=== PATIENT | female | born 1980 | race Caucasian/White ===

== ENCOUNTER 2019-06-05 18:18 | Inpatient (IN) | payer MEDICARE, SELFPAY ==
[2019-06-05 18:29] VITALS: BP 108/82; PULSE 96; RESP 16; TEMP 36.6; O2SAT 97
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
[2019-06-05 18:50] LABS: Bilirubin Negative (Negative); Blood Negative (Negative); Clarity Clear (Clear); Glucose Negative (Negative); Ketones Negative (Negative); Leukocyte Esterase Negative (Negative); Nitrite Negative (Negative); Specific Gravity >= 1.030 (1.005-1.025); Urobilinogen 0.2 EU/dL (Up TO 0.2)
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
[2019-06-05 18:59] LABS: Bacteria Many HPF (Negative); Casts Negative LPF (Negative); Crystals Negative HPF (Negative); Epithelial Cells Many HPF (Negative); Mucus Negative (Negative); RBC Negative (0-2)
[2019-06-05 19:00] LABS: C & S Indicated? No/Sq. Contamination
[2019-06-05 19:06] LABS: *AMPHETAMINES SCREEN URINE Negative (Negative); *BARBITURATES SCREEN URINE Negative (Negative); *BENZODIAZEPINES SCREEN URINE Negative (Negative); Cannabinoids THC Negative (Negative); Cocaine Screen,Urine Negative (Negative); METHADONE URINE SCREEN Negative (Negative); OPIATES URINE SCREEN Negative (Negative)
[2019-06-05 19:18] LABS: Tricyclic Antidepressants Negative (Negative)
[2019-06-05 19:38] LABS: HCT 40.4 % (36.0-46.0); HGB 13.2 g/dL (12.0-15.5); Mean Corp. HGB Concentration 32.7 g/dL (32.0-36.0); Mean Corpuscular Volume 82.6 fL (80-95); Mean Platelet Volume 8.9 fL (8.0-11.0); Platelet Count 376 x1000/uL (130-400); RBC 4.89 m/cumm (4.00-5.20); RBC Distribution Width 14.3 % (11.7-14.6); White Blood Cell Count 9.31 k/cumm (4.4-10.8)
--- NOTE | 2019-06-05 20:00 | CMSP_ITS ---
- If Service Date Differs Date of service: 06/05/19 Time of Service: 19:59 Care Management Safety Plan Keri is voluntary for inpatient psychiatric stabilization. Keri is a 39 year old female admitted for psychiatric stabilization with a reported history of schizoaffective disorder and PTSD. Per report she hears voices most days. She is supposed to be on medications but has not taken them or seen mental health for some time. She has been medically cleared and will transition to the medical surgical unit. [facility] is actively looking for placement for psychiatric stabilization [facility] facilities [facility], and [facility]. Currently Keri is cooperative and has a CPSO at the bedside. Per nursing utilities and maintenance supervisor she has CPSO coverage over night and through out the day tomorrow. She denies friends or family, and reports being homeless. Please see mental health and provides notes for clinical assessment. CM met with provider, utilities and maintenance supervisor and mental health safety plan has been established to meet Keri's needs while she awaits bed availability and transfer. At time of transfer Keri will need to be escorted via inventory coordinator to be coordinated once accepting facility has been identified. Safety plan has been established with patient, and care team, to adhere to patient goals, identify restrictions based on behavioral status, address nutrition, and determine allowed personal belongings, tools for hygiene and personal care. Determine level of activity including ambulation, level of supervision, visitors, and determine privileges based on behaviors and level of engagement by pt. SAFETY PLAN: 1. Will remain on suicide precautions. In Paper Clothes 2. Will remain in room under direct supervision of one-on-one staff at all times provided by CPSO; TIFFANIE, JACQUES program director. 3. May have paper cups, plates, finger foods as well as a safety utensils with each meal. 4. Follow [facility] Management of the Admitted Behavioral Health Patient policy. 5. Keri may use comfort bath system, or shower with CPSO present 6. No personal belongings 7. Visitors-No visitors at this time 8. Activities: coloring books, crayons, music with wireless headphones and television if available 9. Bathroom privileges escorted to and from by CPSO 10. Phone: No phone at this time 11. Due to VOLUNTARY status, if patient wishes to leave [facility], the [facility] health service worker must be contacted to re-evaluate patient prior to patient exiting the building. Patient is currently voluntarily at [facility] and seeking inpatient admission when a bed becomes available. [facility] Frontline Health Care Analyst will continue seeking placement. Please contact the Eight [employer] ([phone]) and [facility] Health Care Analyst ([phone]) for any needed changes in the Safety Plan. Safety plan has been provided to interdepartmental care team.
[2019-06-05 20:01] LABS: ALT 21 U/L (12-78); AST 12 U/L (15-37); Albumin 3.8 g/dL (3.4-5.0); Alkaline Phosphatase 78 U/L (46-116); BUN 13 mg/dL (7-18); Bilirubin, Total 0.3 mg/dL (0.2-1.0); CREATININE 0.73 mg/dL (0.55-1.02); Calcium 9.3 mg/dL (8.5-10.1); Chloride 106 mmol/L (98-107); Glucose 78 mg/dL (70-100); Potassium 3.8 mmol/L (3.5-5.1); Sodium 144 mmol/L (136-145); Total Protein 7.9 g/dL (6.4-8.2)
[2019-06-05 20:09] LABS: Salicylate < 2.8 mg/dL (2.8-20.0)
[2019-06-05 20:10] LABS: Acetaminophen < 2 ug/mL (10-30)
[2019-06-05 20:15] LABS: ETHANOL BLOOD < 3.0 mg/dL (<3)
[2019-06-05 20:20] LABS: TSH (W/Ref FT4) 2.67 uIU/mL (0.358-3.74)
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
[2019-06-05 22:45] VITALS: BP 133/61; PULSE 84; RESP 16; TEMP 36.6; O2SAT 97
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
[2019-06-06] VITALS: BP 130/66; PULSE 82; RESP 16; TEMP 36.6; O2SAT 97
--- NOTE | 2019-06-06 08:12 | PHARADMIT ---
Admission Pharmacy Clinical Review SUICIDAL IDEATION; SCHIZOAFFECTIVE Code Status Full Code Current Weight Wgt- 117.9 kg Renally Cleared and Narrow Therapeutic Index Meds CrCl~ 83.3 mL/min Meds-OK QTc Value / Action Taken NA BP Control, Fever BP-130/66 Tmax- 36.6C Electrolytes reviewed Na- 144 K+3.8 DVT Prophylaxis none Opiate Usage / Scheduled Bowel Regimen Ordered No Yes Plt/SCr for Heparin / Enoxaparin Plts-376 SCr-0.73 INR for Warfarin na H/H stable, WBC/Bands H&H- 13.2/40.4 WBC-9.31 Antibiotic appropriateness none Cultures and Sensitivities none Surgical ABX d/c within 24 hr NA DM control / Insulin Dosing BG- 78 Heart Failure (Check EF%) (CARLYN's, B-Block, Diuretics) none IV to PO Switch NA Home Meds Reviewed None Home Meds Not Ordered None Known Comments
[2019-06-06 09:50] VITALS: BP 116/71; PULSE 67; RESP 16; TEMP 36.3; O2SAT 96
[2019-06-06] MEDS: Nystatin POWDER 60 GM JAR TP ×2 (10:05→21:40)
--- NOTE | 2019-06-06 13:01 | CMPROGNOTE_ITS ---
Care Management Progress Note CM collected SS#, Address information, phone #, insurance information and clinicals and [facility]. CM also provided demographic information to [facility] Access. Coordination of psychiatric stabilization placement transitioned from [facility] to [facility] due to [place] reporting that Keri's insurance will not cover her stay at and base rate cost would be $15,000. CM spoke with Candi melchor [facility] regarding SAMINA coverage, she reported Keri will be recognized as [place] resident as long as her benefits are active and she will be ineligible for [place] SAMINA until that time. [facility] Leila and Ying RNCM report the lapse could take up to thirty days. CM attempted multiple avenues for next steps prior to connecting with [place] [facility] [place] (P#[phone]) who encouraged seeking placement for Keri at [facility] (P#[phone]) Address: [address] [place] [address]. CM spoke with Admissions who reported bed availability and stated Keri had MCR and SAMINA coverage. ( reports Keri's MCR (Out of the state of [place]) is exhausted). CM faxed referral for review to [facility] F#[phone]. Keri reports being agreeable to transferring to [place] for treatment and transporting via [employer] support.
--- NOTE | 2019-06-06 13:01 | PDOC.CMPRO ---
Care Management Progress Note CM collected SS#, Address information, phone #, insurance information and clinicals [facility]. CM also provided demographic information to [facility] Access. Coordination of psychiatric stabilization placement transitioned from [facility] to [facility] due to [place] reporting that Keri's insurance will not cover her stay at and base rate cost would be $15,000. CM spoke with Candi melchor [facility] regarding SAMINA coverage, she reported Keri will be recognized as [place] resident as long as her benefits are active and she will be ineligible for [place] SAMINA until that time. [facility] Leila and Ying RNCM report the lapse could take up to thirty days. CM attempted multiple avenues for next steps prior to connecting with [place] [facility] [place] (P#[phone]) who encouraged seeking placement for Keri at [facility] (P#[phone]) Address: [address] [place] [address]. CM spoke with Admissions who reported bed availability and stated Keri had MCR and SAMINA coverage. ( reports Keri's MCR (Out of the state of [place]) is exhausted). CM faxed referral for review to [facility] F#[phone]. Keri reports being agreeable to transferring to [place] for treatment and transporting via [employer] support.
--- NOTE | 2019-06-06 13:12 | PDOC.MHCN ---
Date of service: 06/06/19 Time of Service: 13:12 Mental Health Crisis Note Presenting Issue How did you arrive at the ED and why did you come: Keri presented at the ER yesterday due to suicidal ideation. Precipitating Factors Keri reports ongoing suicidal ideation. She states she has heard voices for a long time but that lately the voices have been telling her to harm herself and others. Today, Keri states that the voices are no longer telling her to harm other people but continue to tell her to jump out in front of traffic. Disposition BEHAVIOR: Cooperative. EYE CONTACT: Good. MOOD: Calm. AFFECT: Normal. APPETITE: Good. SLEEP(trouble falling/staying asleep: States she slept about 6 hours last night. Plan Plan is to seek a voluntary psychiatric hospitalization. Signature Clinician's Name/Title: Leila Cerna BA, [facility] Supervisor Soldering
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
--- NOTE | 2019-06-06 16:00 | CMSP_ITS ---
Care Management Safety Plan Keri remains appropriate in interaction and agreeable to placement in [place]. CM met with her throughout the day, Keri remained appropriate and agreeable, even using good humor when greeting this public relations writer. Keri was transferred to a transition bed on Med/Surg to await placement. Safety plan has been established with patient, and care team, to adhere to patient goals, identify restrictions based on behavioral status, address nutrition, and determine allowed personal belongings, tools for hygiene and personal care. Determine level of activity including ambulation, level of supervision, visitors, and determine privileges based on behaviors and level of engagement by pt. SAFETY PLAN: 1. Will remain on suicide precautions. In Paper Clothes 2. Will remain in room under direct supervision of one-on-one staff at all times provided by [employer]; TIFFANIE, JACQUES motor grader rough grade. 3. May have paper cups, plates, finger foods, safety utensils as well as a metal spoon with which to eat meals. [facility] staff with account for spoon when meal is complete. 4. Follow [facility] Management of the Admitted Behavioral Health Patient policy. 5. Keri may use comfort bath system, or shower with [employer] present. 6. No personal belongings 7. Visitors-No visitors at this time 8. Activities: coloring books, crayons, music with wireless headphones and television permitted. 9. Phone: No phone at this time 11. Due to VOLUNTARY status, if patient wishes to leave [facility], the [facility] Crisis wo rker must be contacted to re-evaluate patient prior to patient exiting the building. Patient is currently voluntarily at [facility] and seeking inpatient admission when a bed becomes available. [facility] Frontline Instructional Services Specialist will continue seeking placement. Please contact the Travel Accommodations Rater Warp Bleaching Vat Tender ([phone]) and [facility] Instructional Services Specialist ([phone]) for any needed changes in the Safety Plan. Safety plan has been provided to interdepartmental care team.
[2019-06-06 16:25] VITALS: BP 110/57; PULSE 72; RESP 20; TEMP 36; O2SAT 96
[2019-06-06 20:45] VITALS: BP 104/56; PULSE 67; RESP 19; TEMP 36.5; O2SAT 98
[2019-06-06] MEDS: Melatonin 3 MG TAB 9 MG PO (21:40)
[2019-06-07 07:30] VITALS: BP 123/65; PULSE 66; RESP 16; TEMP 36.5; O2SAT 98
[2019-06-07] MEDS: Nystatin POWDER 60 GM JAR TP ×2 (10:00→20:37)
--- NOTE | 2019-06-07 10:00 | CMPROGNOTE_ITS ---
Care Management Progress Note CM spoke with Candi melchor TIFFANIE who directed this caption writer to Mily Morales due to BR reporting Keri has exhausted her MCR. Mily was unable to see where MCR was exhausted and emailed information to this caption writer who provided it to aKle CHRISTOFER to follow up with MCR coverage for [place] coordination. CM continues to seek bed placement in [facility] (P#[phone]) Address: [address] [place] [phone] CM spoke with [facility] who reported anticipating discharges and encouraged this caption writer to call back around 1100. Keri remains on wait list pending bed availability. 1054 No bed availability 1655 Requested updated clinicals reported would push clinicals though were not aware of any female discharges today. 06/07/19 [facility]:[phone] faxed referral F#[phone] [place]: [phone], no beds available [facility]: [phone], No transfer needs to present to ER for re- assessment; [facility]: [phone], No beds available [facility]: [phone], no beds [facility]: [phone] Faxed referral 06/06/19 [facility]: [phone]: [facility] does not accept patients across state lines [place]: [phone] [facility] does not accept patients across state lines-even though voluntary not appropriate closer facility recommended Alejandro Tamayo [facility]: [phone]: Not accepting referrals [facility]: [phone]-Left
--- NOTE | 2019-06-07 10:00 | PDOC.CMPRO ---
Care Management Progress Note CM spoke with Candi melchor TIFFANIE who directed this life underwriter to Mily Morales due to BR reporting Keri has exhausted her MCR. Mily was unable to see where MCR was exhausted and emailed information to this life underwriter who provided it to Kale CHRISTOFER to follow up with MCR coverage for VT coordination. CM continues to seek bed placement in [facility] (P#[phone]) Address: [address] [place] [phone] CM spoke with [facility] who reported anticipating discharges and encouraged this life underwriter to call back around 1100. Keri remains on wait list pending bed availability. 1054 No bed availability 1655 Requested updated clinicals reported would push clinicals though were not aware of any female discharges today. 06/07/19 [facility]:[phone] faxed referral F#[phone] [place]: [phone], no beds available [facility]: [phone], No transfer needs to present to ER for re-assessment; no beds [facility]: [phone], No beds available [facility]: [phone], no beds [facility]: [phone] Faxed referral 06/06/19 [facility]: [phone]: [facility] does not accept patients across state lines [place]: [phone] [facility] does not accept patients across state lines-even though voluntary not appropriate closer facility recommended Ale[facility]andro Tamayo [facility]: [phone]: Not accepting [facility]: [phone]-Left
--- NOTE | 2019-06-07 11:28 | PDOC.MHCN ---
Date of service: 06/07/19 Time of Service: 11:28 Mental Health Crisis Note Presenting Issue How did you arrive at the ED and why did you come: Keri remains at [facility] awaiting a psych placement. She first presented to the hospital on 06/05/19 due to suicidal and homicidal ideation. Precipitating Factors Keri continues to report suicidal ideation. She reportedly hears voices that are telling her to jump out in front of moving vehicles. She denies current homicidal thoughts. Disposition BEHAVIOR: Cooperative. EYE CONTACT: Good. MOOD: Calm. AFFECT: Normal. APPETITE: Good. SLEEP(trouble falling/staying asleep: Reports difficulty sleeping last night, only sleeping a couple of hours. Plan Plan is for Keri to remain at [facility] while we continue to seek a psych placement for her. Signature Clinician's Name/Title: Leila Cerna BA, [facility] Career And Guidance Counselor
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
[2019-06-07 16:13] VITALS: BP 124/83; PULSE 78; RESP 19; TEMP 36.7; O2SAT 96
[2019-06-07] MEDS: Enoxaparin 40 MG/0.4 ML SYR SC (16:20)
[2019-06-08 04:05] VITALS: BP 102/65; PULSE 74; RESP 18; TEMP 36.6; O2SAT 96
[2019-06-08 07:50] VITALS: BP 114/59; PULSE 69; RESP 18; TEMP 35.9; O2SAT 98
[2019-06-08] MEDS: Nystatin POWDER 60 GM JAR TP (08:54)
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
--- NOTE | 2019-06-08 18:15 | CMDISCH_ITS ---
- If Service Date Differs Date of service: 06/08/19 Time of Service: 18:15 LACE Index Scoring Tool - Questions: Length of Stay (in days): 3 Acuity (Admit via E.D.?): Yes E.D. Visits: 1 - Answers: Total Score: 7 Risk of Readmission: Low Risk Care Management Discharge Reason for Hospitalization: Suicidal ideation Discharge Plan: Keri is being discharged to the [facility] in [place], [place]. Mimi Metz, [facility] Emergency Screener, was able to obtain vouchers for Keri for a 2 night stay. On Monday Keri will be contacted by [facility] staff to facilitate transfer to a fci and to assist her with obtaining needed services. She will be transported by [facility] [[email or web address]], arranged by CM. Patient/Family Education Needs: Discharge plan and follow up. Available services, fci locations. - MH Services (Omit if N/A) Referred to Internal [facility] (ED embedded) case coordinator?: Yes
--- NOTE | 2019-06-08 18:15 | PDOC.CMDIS ---
- If Service Date Differs Date of service: 06/08/19 Time of Service: 18:15 LACE Index Scoring Tool - Questions: Length of Stay (in days): 3 Acuity (Admit via E.D.?): Yes E.D. Visits: 1 - Answers: Total Score: 7 Risk of Readmission: Low Risk Care Management Discharge Reason for Hospitalization: Suicidal ideation Discharge Plan: Keri is being discharged to the [facility] in [place], [place]. Mimi Metz, [facility] Emergency Screener, was able to obtain vouchers for Keri for a 2 night stay. On Monday Keri will be contacted by [facility] staff to facilitate transfer to a residential and to assist her with obtaining needed services. She will be transported by [facility], arranged by CM. Patient/Family Education Needs: Discharge plan and follow up. Available services, residential locations. - MH Services (Omit if N/A) Referred to Internal [facility] (ED embedded) housing case manager?: Yes
== END 2019-06-08 16:03 | disposition other institution (70) | DRG 880 ==
LOC: ER 22:06 → TMS 22:39
PROVIDERS: Admitting Provider Internal Medicine; Emergency Provider Emergency Medicine; Visit Provider Internal Medicine
DX: R45.851 Suicidal ideations (principal); F25.9 Schizoaffective disorder, unspecified; F32.9 Major depressive disorder, single episode, unspecified; F43.10 Post-traumatic stress disorder, unspecified; B36.8 Other specified superficial mycoses; Z59.0 Homelessness; Z75.1 Person awaiting admission to adequate facility elsewhere
CPT/HCPCS: 36415; 80053; 80307; 81025; 85027; 99219; 99232; 99239; 99285; J1650; 80320; 80329; 81003; 81015; 84443; 99225; 99284; G0378